=== PATIENT | female | born 1995 | race African-American/Black ===

== ENCOUNTER 2016-08-09 09:19 | Emergency (ER) ==
--- NOTE | 2016-08-09 10:40 | PROVIDER DOCUMENTATION ---
HPI-EENT General - History of Present Illness-EENT General EENT Location: reports: nose, throat Quality of Pain: reports: aching Severity: reports: mild Onset/Duration: reports: 2 days ago Timing: reports: still present Prearrival Treatment: Initiated no prearrival treatment Associated Symptoms: reports: nasal congestion/drainage, sore throat Locality of Occurance: Home Similar Symptoms Previously?: No Recently seen or treated by another doctor?: No - Eyes Eye Problem Context: reports: none - Ears Ear Problem Symptoms: reports: none - Throat/Dental Throat/Dental Problem Symptoms: reports: sore throat. denies: toothache, jaw pain, swelling of jaw/face, trouble breathing, throat swelling Recently seen a dentist or have an appointment?: No <Amado Mixon - Last Filed: 08/09/16 10:55> <Leonel Lunsford - Last Filed: 08/09/16 10:58> - General Chief Complaint: Cold Symptoms Stated Complaint: COLD SX Time Seen by Provider: 08/09/16 10:36 Allergies/Adverse Reactions: Patient Allergies Allergy/AdvReac Type Severity Reaction Status Date / Time No Known Allergies Allergy Verified 04/05/15 09:14 Home Medications: Home Medication List Medication Instructions Recorded Confirmed Last Taken Type Azithromycin [Zithromax Z-Ned] 250 mg PO DIRECTED #1 pkg 04/05/15 Unknown Rx Guaifenesin/Codeine Phosphate 10 ml PO Q4HR #120 liquid 04/05/15 Unknown Rx [Cheratussin AC Syrup] P-Ephed HCl/Acetaminophen/Cp 1 packet PRN 04/05/15 04/05/15 04/04/15 History [Theraflu Flu-Cold Medicine] Fluticasone Propionate [Flonase 9.9 ml NS DAILY #1 spray.susp 08/09/16 Unknown Rx Allergy Relief] Loratadine [Claritin] 10 mg PO QHS #30 tablet 08/09/16 Unknown Rx - History of Present Illness-EENT General Nature of Presenting Problem: PT C/O RUNNY NOSE AND SORE THROAT. (Amado Mixon) Review of Systems - Adult - REVIEW OF SYSTEMS - ADULT Constitutional: denies: chills, fever, fatique Eyes: denies: discharge, dry eyes, decreased vision Ears, Nose, Mouth & Throat: reports: sinus problem, throat pain. denies: ear pain, throat swelling Cardiovascular: denies: chest pain, irregular heart rate, palpitations Respiratory: reports: cough, shortness of breath. denies: wheezing Gastrointestinal: denies: abdominal pain, nausea, vomiting Genitourinary: denies: dysuria, flank pain, frequent UTI's, hematuria Musculoskeletal: denies: back pain, muscle aches, neck pain Integumentary: denies: hives, itching, rash Neurological: denies: headache/migraines, numbness, slurred speech Psychiatric: denies: anxiety, depression, emotional problems All Other Systems: Reviewed and Negative <ApurvaZelalemAmado - Last Filed: 08/09/16 10:55> Past History - Adult - PAST MEDICAL HISTORY-ADULT Review of Records: reports: Old Records Reviewed, Nursing Assessment Review, Medications Reviewed Major Childhood Illnesses: reports: denies history - PRIOR SURGERIES/PROCEDURES Surgical/Procedure History: reports: none - IMMUNIZATION STATUS Childhood Immunizations: See Nurse Assessment Flu Vaccine: See Nurse Assessment - SOCIAL HISTORY Smoking: denies Substance Use: none/never Living Situation: family <Amado Mixon - Last Filed: 08/09/16 10:55> Physical Exam- EENT - Physical Exam EENT Initial Vital Signs Reviewed: Yes General Appearance: appears well, alert, no apparent distress Eye Exam: bilateral eye: normal inspection, PERRL, EOMI Ear Exam: bilateral ear: auricle normal, canal normal, TM normal Nasal Exam: normal inspection Throat Exam: normal mouth inspection Neck: non-tender, full range of motion, supple Respiratory: chest non-tender, lungs clear, normal breath sounds, no pleuratic chest pain, no respiratory distress, no accessory muscle use Cardiovascular: normal peripheral pulses, regular rate, rhythm, no edema, no gallop, no JVD, no murmur Abdominal Exam: normal bowel sounds, non tender, soft, no organomegaly, no pulsatile mass Lymphatic: no adenopathy Back Exam: normal inspection, no CVA tenderness, no vertebral tenderness Extremity: normal range of motion, non-tender, normal gait, normal inspection, no pedal edema, no calf tenderness, normal capillary refill Integumentary: normal color, normal turgor, warm/dry Psych/Mental Status: normal mood/affect, normal thought content, normal thought process, oriented x 3 <Amado Mixon - Last Filed: 08/09/16 10:55> Progress <Apurva,Amado - Last Filed: 08/09/16 10:55> <Leonel Lunsford - Last Filed: 08/09/16 10:58> - PLAN OF CARE/RESULTS Progress/Plan/Lab Results: Laboratory Results - last 24 hr 08/09/16 Unknown Group A Strep Rapid NEGATIVE (Apurva,Amado) Departure <Apurva,Amado - Last Filed: 08/09/16 10:55> - Departure Time of Disposition Order: 10:56 Certified Medical Emergency: Emergent <Leonel Lunsford - Last Filed: 08/09/16 10:58> - Departure DIAGNOSIS: Allergic rhinitis Qualifiers: Allergic rhinitis trigger: pollen Allergic rhinitis seasonality: seasonal Qualified Code(s): J30.1 - Allergic rhinitis due to pollen Disposition: HOME 01 Condition: Stable Additional Instructions: ED Follow Up Instructions: You have been treated by a care provider in the Emergency Department. These instructions are being provided to you so you can have an understanding of how to care for yourself upon discharge. Upon discharge from the Emergency Department, you are responsible for making arrangements for follow-up care by a physician of your choice. Take all prescribed medications as directed. Return to the Emergency Department immediately for any new or worsening symptoms. You may call the Physician Referral phone number at [phone] to obtain a list of Physicians who are taking new patients. Prescriptions: Loratadine [Claritin] 10 mg PO QHS #30 tablet Fluticasone Propionate [Flonase Allergy Relief] 9.9 ml NS DAILY #1 spray.susp Referrals: None,PCP [Primary Care Provider] - Physician Attestation
== END 2016-08-09 11:04 | disposition home or self-care (01) ==
LOC: P.ED 09:19
DX: J30.1 Allergic rhinitis due to pollen (principal); J02.9 Acute pharyngitis, unspecified; R09.81 Nasal congestion; R09.89 Other specified symptoms and signs involving the circulatory and respiratory systems; R06.02 Shortness of breath
CPT/HCPCS: 87081; 87430